=== PATIENT | male | born 1980 | race African-American/Black ===

== ENCOUNTER 2018-10-03 19:19 | Emergency (ER) | payer OTHER ==
[~2018-10-03] VITALS: Ht 182.9 cm; Wt 99.8 kg
[~2018-10-03 19:19] MED LIST: NOHOMEMEDICATIONS
[2018-10-03] MEDS ORDERED: PAXIL10 MG PO (19:27)
[2018-10-03 20:34] LABS: ABSOLUTE NEUTROPHILS 4.4 thou/uL (1.4-8.2); BASOPHILS 0.9 % (0.0-2.0); EOSINOPHILS 0.3 % (0.0-3.0); HEMATOCRIT 38.5 % (42.0-52.0); HEMOGLOBIN 12.7 gm/dL (14.0-18.0); LYMPHOCYTES 17.8 % (24.0-44.0); MCH 29.1 pg (26.0-34.0); PLATELET COUNT 290 thou/uL (150-400); RBC 4.38 mil/uL (4.50-6.00); RDW 14.4 % (10.5-14.5); WBC 6.3 thou/uL (4.0-11.0)
[2018-10-03 20:42] LABS: CALCIUM 9.3 mg/dL (8.5-10.1); CREATININE 1.3 mg/dL (0.7-1.3); POTASSIUM 3.5 mmol/L (3.5-5.1)
[2018-10-03 20:49] LABS: DIRECT BILIRUBIN 0.2 mg/dL (<0.1-0.3); TOTAL BILIRUBIN 0.8 mg/dL (<0.1-1.0)
[2018-10-03 22:43] VITALS: BP 139/102
== END 2018-10-03 22:44 | disposition home or self-care (01) ==
LOC: ER 19:19
PROVIDERS: Emergency Medicine
DX: R10.31 Right lower quadrant pain (principal); I10 Essential (primary) hypertension; G47.30 Sleep apnea, unspecified; F17.210 Nicotine dependence, cigarettes, uncomplicated